=== PATIENT | female | born 1975 | race Two or more races ===

== ENCOUNTER 2022-01-05 09:22 | Emergency (ER) | payer OTHER ==
[~2022-01-05] VITALS: Ht 165.1 cm; Wt 70.3 kg
[2022-01-05 09:34] VITALS: BP_SYST 108
--- NOTE | 2022-01-05 10:27 | NUR ---
DR TRAYLOR IN ROOM FOR EXAM
--- NOTE | 2022-01-05 10:31 | NUR ---
46-year-old female status post left lumpectomy 1 week ago presents with complaint of sharp intermittent episodes of left and right chest pain also complaining of sharp back pain. Patient denies any shortness of breath she denies nausea vomiting or diaphoresis she denies a cough congestion fevers or chills. Symptoms are intermittent in nature and usually only last a few seconds in duration.
[2022-01-05] MEDS ORDERED: NAPR-1082 PO (11:18)
[2022-01-05 11:25] VITALS: BP_SYST 108
--- NOTE | 2022-01-05 11:26 | NUR ---
Patient given written and verbal discharge instructions and verbalizes understanding. ER MD discussed with patient the results and treatment provided. Patient in stable condition. ID arm band removed. Rx of NAPROXEN SODIUM given. Patient educated on pain management and to follow up with PMD. Pain Scale 3. Opportunity for questions provided and answered. Medication side effect fact sheet provided.
== END 2022-01-05 11:26 | disposition home or self-care (01) ==
LOC: SED 09:22
DX: R07.89 Other chest pain (principal); Z91.041 Radiographic dye allergy status
CPT/HCPCS: 71045; 93005; 99283